=== PATIENT | female | born 1945 | race Caucasian/White ===

== ENCOUNTER 2017-03-05 09:38 | Emergency (ER) | payer OTHER, MEDICARE ==
[2017-03-05] MEDS ORDERED: IOPAMIDOL (ISOVUE-300) 100 ML BTL ONE (10:05)
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
[2017-03-05 10:26] LABS: % IMMATURE GRANULYOCYTES 0.2 % (0.0-1.1); ABSOLUTE IMMATURE GRANULOCYTES 0.01 10^3/uL (0.00-0.10); ADD DIFF? NO; ADD MORPH? NO; ADD SCAN? NO; ATYPICAL LYMPHOCYTE FLAG 20 (0-99); FRAGMENT RBC FLAG 0 (0-99); HEMATOCRIT 36.4 % (38.0-47.0); HEMOGLOBIN 12.2 g/dL (12.6-16.3); LEFT SHIFT FLG 0 (0-99); LIPEMIA HEMOLYSIS FLAG 80 (0-99); MEAN CELL HEMOGLOBIN 32.9 pg (27.9-34.1); MEAN CELL HEMOGLOBIN CONCENTR. 33.5 g/dL (32.4-36.7); MEAN CELL VOLUME 98.1 fL (81.5-99.8); MEAN PLATELET VOLUME 10.5 fL (8.7-11.7); PLATELET CLUMPS FLAG 0 (0-99); PLATELET COUNT 159 10^3/uL (150-400); RED BLOOD CELL COUNT 3.71 10^6/uL (4.18-5.33); RED CELL DISTRIBUTION WIDTH 12.6 % (11.5-15.2)
[2017-03-05 10:39] LABS: ANION GAP 9 mEq/L (8-16); CALCIUM 8.3 mg/dL (8.5-10.4); CARBON DIOXIDE 23 mEq/l (22-31); CHLORIDE 108 mEq/L (97-110); CREATININE 0.6 mg/dL (0.6-1.0); GLOMERULAR FILTRATION RATE > 60; GLUCOSE 58 mg/dL (70-100); POTASSIUM 3.8 mEq/L (3.5-5.2); SODIUM 140 mEq/L (134-144)
[2017-03-05] MEDS ORDERED: KETOROLAC 30 MG/1 ML SDV IVP ONE (11:15)
[2017-03-05 12:12] VITALS: BP 110/69; PULSE 55; RESP 16; TEMP 98.2; O2SAT 96
== END 2017-03-05 12:15 | disposition home or self-care (01) ==
LOC: CED 09:38
DX: S22.32XA Fracture of one rib, left side, initial encounter for closed fracture (principal); S39.012A Strain of muscle, fascia and tendon of lower back, initial encounter; V49.50XA Passenger injured in collision with unspecified motor vehicles in traffic accident, initial encounter; Y92.410 Unspecified street and highway as the place of occurrence of the external cause
CPT/HCPCS: 71260-PO; 74177-PO; 80048-PO; 85025-PO; 96374; J1885; Q9967

== ENCOUNTER 2018-08-21 07:52 | Emergency (ER) | payer OTHER, MEDICARE ==
[2018-08-21] MEDS ORDERED: HYDROmorphONE/DILAUDID 2 MG/ML INJ IM ONE (08:56)
--- NOTE | 2018-08-21 08:56 | EDPHY ---
HPI/HX/ROS/PE/MDM Narrative: CHIEF COMPLAINT: Post-op pain HPI: This patient is a 73 year old female who is one day s/p right thumb surgery with Dr. Casas, orthopedic surgery. Since the procedure, she has been having throbbing, continual pain in in the surgical area. It feels "like someone is jabbing a knife" into her right hand. She has been taking her pain medication, Hydrocodone 10mg, as prescribed since discharge yesterday, but nothing has relieved her pain. She called her surgeon last night who changed the duration between doses from Q6 to Q4. This still has not controlled her pain the patient states she has done better with patches or liquid in the past due to history of gastric reduction duodenal switch and subsequent poor absorption of pills. The patient's primary concern today is pain control and she has no further complaints. No fever, chest pain, shortness of breath, vomiting, or other associated symptoms. REVIEW OF SYSTEMS: A comprehensive 10 system review of systems is otherwise negative aside from elements mentioned in the history of present illness and medical decision making. PMH: Gastric reduction duodenal switch surgery. Cholecystectomy. Appendectomy. Tonsillectomy. Back surgery x2. SOCIAL HISTORY: Friend at bedside. Lives in [place]. Retired. PHYSICAL EXAM: General:Patient is alert, in no acute distress. Respiratory:No respiratory distress. Breath sounds normal bilaterally. Cardiovascular: Regular rate and rhythm. Strong peripheral pulses. Normal cap refill. Skin: Normal color. No rash. Warm and dry. Extremities: Splint over left hand to the forearm. Good capillary refill in thumb. Able to move all fingers appropriately. Ecchymosis over volar aspect of forearm. Normal appearance. Full range of motion. Neuro: Oriented x3. Normal motor function. Normal sensory function. ED Course: 73 y/o female s/p right thumb surgery with Dr. Casas yesterday presents with ongoing severe right hand pain. I spoke with Dr. Casas, the patient's orthopedic surgeon. He has requested that on my evaluation I not remove the patient's splint. On exam, I note good capillary refill in the thumb and excellent movement of all fingers. No deficits in sensation. There is ecchymosis to the volar aspect of the forearm. Vitals are stable, no tachycardia, the patient is afebrile. Her primary complain today is uncontrollable postoperative pain. I discussed the risks of opiate medications with the patient. I let her know I typically do not prescribe opiate medication patches here in the emergency department. As she states she does better with liquid medication, plan to discharge home with Dilaudid 1mg/mL liquid for breakthrough pain. She is amenable to this and feels comfortable with discharge home. She understands the risks and treatment benefits of this medication and agrees to use this for breakthrough pain only and to closely monitor the effects of the medication. Plan to administer 0.5mg IM Dilaudid for pain relief prior to discharge. The patient will follow up with her surgeon for further evaluation and discussion of her pain management regimen. Plan to discharge home in good condition. Return precautions discussed. The patient is comfortable with this plan. MDM: This patient presents with post-operative pain that is not managed by current pain medication regimen. Dr. Casas has asked me not to remove splint so I am unable to fully evaluate the surgical wound, but distal cap refill and finger movements appear normal. I do not see signs of infection or severe bleeding. The patient is comfortable with plan for discharge and close follow-up with ortho. - Data Points Medications Given: Discontinued Medications Hydromorphone HCl (Dilaudid) 0.5 mg IM EDNOW ONE Stop: 08/21/18 08:57 Last Admin: 08/21/18 09:02 Dose: 0.5 mg General Time Seen by Provider: 08/21/18 08:46 Initial Vital Signs: Initial Vital Signs Temperature (C) 36.8 C 08/21/18 08:00 Heart Rate 71 08/21/18 08:00 Respiratory Rate 18 08/21/18 08:00 Blood Pressure 98/57 L 08/21/18 08:00 O2 Sat (%) 94 08/21/18 08:00 O2 Delivery Mode Room Air Allergies/Adverse Reactions: No Known Allergies Allergy (Verified 08/21/18 07:59) Home Medications: Medication Instructions Recorded CeleBREX 10/26/14 RESTORIL 02/24/16 Celebrex 03/05/17 Hydrocodone/APAP 5/325 [[place] 1 - 2 tab PO Q4H PRN #20 tab 03/05/17 5/325 (RX)] Temazepam 03/05/17 HYDROmorphone HCL [Dilaudid] 1 - 2 mg PO Q6 PRN #20 ml 08/21/18 Departure - Departure Disposition: Home, Routine, Self-Care Clinical Impression: Postoperative pain Condition: Good Instructions: Hydromorphone (By mouth), Pain Management (ED) Additional Instructions: Take Dilaudid liquid medication as prescribed as needed for breakthrough pain. Take a 1/2 dose to start and wait to see if this relieves your pain sufficiently , as we discussed. If not, you may take the full dose as prescribed. Do not exceed this amount. You may continue to take Hydrocodone pills as prescribed for pain relief. Follow up with Dr. Casas as directed. Return to the emergency department for fever, worsening pain, swelling, numbness , weakness or other concerns. Referrals: Yanely Flores MD [Primary Care Provider] - As per Instructions Carlos Enrique Casas MD [Medical Doctor] - As per Instructions Prescriptions: HYDROmorphone HCL [Dilaudid] 1 - 2 mg PO Q6 PRN #20 ml PRN Reason: Pain, Breakthrough Report Scribed for: Gino Chilel Report Scribed by: Tammy Guy Date of Report: 08/21/18 Time of Report: 08:56 Physician Review and Approval Statement: Portions of this note were transcribed by an ED scribe. I personally performed the history, physical exam, and medical decision making; and confirm the accuracy of the information in the transcribed note.
[2018-08-21 09:11] VITALS: BP 95/63
== END 2018-08-21 09:13 | disposition home or self-care (01) ==
DX: G89.18 Other acute postprocedural pain (principal); Z98.890 Other specified postprocedural states
CPT/HCPCS: 96372; 99284; J1170

== ENCOUNTER → 2019-01-25 | Outpatient (CLI) | payer OTHER, MEDICARE | LOC: EMCIMAGING 10:08 | PROVIDERS: ATTEND Family Medicine | DX: Z12.31 Encounter for screening mammogram for malignant neoplasm of breast (principal); Z13.820 Encounter for screening for osteoporosis; M81.0 Age-related osteoporosis without current pathological fracture; M85.89 Other specified disorders of bone density and structure, multiple sites; Z78.0 Asymptomatic menopausal state | CPT/HCPCS: 77067-PN; 77080-PN ==